=== PATIENT | female | born 1990 | race Caucasian/White ===

== ENCOUNTER 2020-08-20 14:53 | Emergency (ER) | payer OTHER, MEDICAID ==
[~2020-08-20] VITALS: Ht 167.6 cm; Wt 95.3 kg
[2020-08-20 17:17] LABS: URINE BILIRUBIN NEGATIVE (Negative); URINE BLOOD NEGATIVE (Negative); URINE COLOR YELLOW; URINE GLUCOSE-RANDOM NEGATIVE (Negative); URINE KETONES TRACE (Negative); URINE LEUKOCYTES-REFLEX TRACE (Negative); URINE NITRITE-REFLEX NEGATIVE (Negative); URINE PROTEIN NEGATIVE (Negative); URINE SPECIFIC GRAVITY 1.025 (1.005-1.030); URINE UROBILINOGEN >= 8.0 E.U./dl (0.2-1.0)
[2020-08-20 17:18] LABS: URINE CLARITY CLOUDY
[2020-08-20 17:24] LABS: SQUAMOUS >10 Many /LPF (0-3)
[2020-08-20 17:25] LABS: BACTERIA-REFLEX >30 Many /HPF (None Seen); CASTS None Seen /LPF (None Seen); CRYSTALS None Seen /LPF (None Seen); MUCUS 0-3 Light strn/LPF (None Seen); URINE RBC None Seen /HPF (0-2)
[2020-08-20] MEDS ORDERED: BUTALB-APAP-CA1 EACH PO (19:05)
[2020-08-20] MEDS ORDERED: CEPHALEXIN500 MG PO (19:05)
[2020-08-20 19:17] VITALS: BP 116/77
== END 2020-08-20 19:18 | disposition home or self-care (01) ==
LOC: M.ERS 14:53
PROVIDERS: Physician Assistant
DX: R51.9 Headache, unspecified (principal); N39.0 Urinary tract infection, site not specified; R11.0 Nausea; R10.32 Left lower quadrant pain